=== PATIENT | male | born 1935 | race Hispanic/Latino ===

== ENCOUNTER 2017-09-16 09:56 | Emergency (ER) | payer MEDICARE, OTHER ==
[2017-09-16 10:11] VITALS: BP 137/74; PULSE 68; RESP 18; TEMP 98.4; O2SAT 98; BMI 29.0
[2017-09-16] MEDS ORDERED: TDAP Vaccine 0.5 mL Syr IM ONE (10:22)
--- NOTE | 2017-09-16 10:22 | ED PDOC ---
Arrival/HPI - General Time Seen by Provider: 09/16/17 09:58 Historian: Patient - History of Present Illness Narrative History of Present Illness (Text): 09/16/17 10:16 82 y/o male, pmh including htn/hyperlipidemia/bph, nkda, last tetanus doesn't remember, c/o fall and head laceration x 1 hour. Pt. stated that he was walking on the street, tripped over an uneven concrete curb, hit the head against the concrete, sustained laceration to the head and abrasion to the rt. hand, no rt. hand pain or discomfort, no neck pain, able to recall the whole event with no LOC, no rash, no palpitation, takes baby dose aspirin each day, no other medical or psychological complaints. Past Medical History - Provider Review Nursing Documentation Reviewed: Yes - Infectious Disease Hx of Infectious Diseases: None - Tetanus Immunization Tetanus Immunization: Unknown - Cardiac Hx Cardiac Disorders: Yes Hx Hypertension: Yes - Pulmonary Hx Respiratory Disorders: No - Neurological Hx Neurological Disorder: No - HEENT Hx HEENT Disorder: No - Renal Hx Renal Disorder: No - Endocrine/Metabolic Hx Endocrine Disorders: No - Hematological/Oncological Hx Blood Disorders: No - Integumentary Hx Dermatological Disorder: Yes Other/Comment: leg abscess (R) - Musculoskeletal/Rheumatological Hx Musculoskeletal Disorders: No - Gastrointestinal Hx Gastrointestinal Disorders: No - Genitourinary/Gynecological Hx Genitourinary Disorders: Yes Other/Comment: urinary retention - Psychiatric Hx Psychophysiologic Disorder: No Hx Substance Use: No - Surgical History Other/Comment: i&d 2 days ago of right posterior thigh abcess in er - Anesthesia Hx Anesthesia: Yes Hx Anesthesia Reactions: No Hx Malignant Hyperthermia: No - Suicidal Assessment Feels Threatened In Home Enviroment: No Family/Social History - Physician Review Nursing Documentation Reviewed: Yes Family/Social History: Unknown Family HX Smoking Status: Unknown If Ever Smoked Hx Alcohol Use: Yes Hx Substance Use: No Allergies/Home Meds Allergies/Adverse Reactions: Allergies No Known Allergies Allergy (Verified 10/12/15 11:37) Home Medications: Home Meds Medication Instructions Recorded Confirmed Lisinopril [Lisinopril] 10 mg PO DAILY 11/28/13 10/12/15 Simvastatin [Simvastatin] 40 mg PO HS 11/28/13 10/12/15 Aspirin [Ecotrin] 81 mg PO DAILY 10/12/15 10/12/15 Pantoprazole [Protonix] 40 mg PO DAILY PRN 10/12/15 10/12/15 Tamsulosin HCl [Flomax] 0.4 mg PO HS 10/12/15 10/12/15 amLODIPine [Norvasc] 5 mg PO DAILY 10/12/15 10/12/15 Review of Systems - Review of Systems Constitutional: absent: Fatigue, Fevers Eyes: absent: Vision Changes ENT: absent: Hearing Changes Respiratory: absent: SOB, Cough Cardiovascular: absent: Chest Pain Gastrointestinal: absent: Abdominal Pain, Diarrhea, Nausea, Vomiting Skin: Laceration, Other (+abrasion). absent: Rash, Pruritis, Skin Lesions, Abscess, Cellulitis Neurological: absent: Headache, Dizziness, Focal Weakness, Gait Changes, Speech Changes Physical Exam Vital Signs Reviewed: Yes Vital Signs Temp Pulse Resp BP Pulse Ox 09/16/17 10:10 98.4 F 68 18 137/74 98 Temperature: Afebrile Blood Pressure: Normal Pulse: Regular Respiratory Rate: Normal Appearance: Positive for: Well-Appearing, Non-Toxic, Comfortable Pain Distress: Mild Mental Status: Positive for: Alert and Oriented X 3 - Systems Exam Head: Present: Atraumatic, Laceration (frontal forehead extended to the skull L- shaped laceration superficial to intermediate approx. 8cm noted with no major artery laceration and no pulsation bleeding. ), Other (Facial: +ttp on the nasal bridge and abrasion noted. ) Pupils: Present: PERRL Extroacular Muscles: Present: EOMI Conjunctiva: Present: Normal Ears: Present: NORMAL TM, Normal Canal. No: Erythema Mouth: Present: Moist Mucous Membranes Pharnyx: No: ERYTHEMA, EXUDATE, TONSILS ENLARGED, Uvular Deviation Nose (External): Present: Abrasion, Contusion. No: Laceration, Lesions Nose (Internal): Present: Normal Inspection, No Active Bleeding. No: Rhinorrhea , Septal Hematoma, Epistaxis Neck: Present: Normal Range of Motion, Trachea Midline. No: Meningeal Signs, MIDLINE TENDERNESS, Paraspinal Tenderness, Lymphadenopathy Respiratory/Chest: Present: Clear to Auscultation, Good Air Exchange. No: Respiratory Distress, Accessory Muscle Use, Tender to Palpation Cardiovascular: Present: Regular Rate and Rhythm, Normal S1, S2. No: Murmurs Abdomen: Present: Normal Bowel Sounds. No: Tenderness, Distention, Peritoneal Signs, Rebound, Guarding Back: Present: Normal Inspection Upper Extremity: Present: Normal Inspection, Normal ROM, NORMAL PULSES, Neurovascularly Intact, Capillary Refill < 2s, Other (there is superficial abrasion approx. 1cm noted on the dorsum right hand 5th MCPJ region with no bony tenderness or swelling. ). No: Cyanosis, Edema, Tenderness, Swelling, Deformity Lower Extremity: Present: Normal Inspection, NORMAL PULSES, Normal ROM, Neurovascularly Intact, Capillary Refill < 2 s. No: Edema, Tenderness, Swelling , Deformity Neurological: Present: GCS=15, CN II-XII Intact, Speech Normal, Motor Func Grossly Intact, Gait Normal, Memory Normal Skin: Present: Warm, Dry, Normal Color. No: Rashes Psychiatric: Present: Alert, Oriented x 3, Normal Insight, Normal Concentration Medical Decision Making ED Course and Treatment: 09/16/17 10:26 -Pain med offer, pt. declined -Tdap ordered and agreed to take it -CT head and facial -I offer rt. hand xray and patient declined as he stated that he has no pain and able to have full range of movement on rt hand without difficulty. 09/16/17 11:58 -CT Head: No acute findings -CT facial: No acute findings. No evidence of fracture -Sensation intact, motor 5/5, laceration site on the frontal scalp, wound irrigated with normal saline 1000cc, clean with betadine, 1% lidocaine injected approx. 1cc, 4-0 nylon made 10 sutures, hemostasis obtained, bacitracin and gazue dressing, sensation intact, motor 5/5, total procedure time 15 minutes, no complication during the procedure. -Discharge home with bacitracin oinment, keep the dressing dry and clean for 2 days then clean with soap and water twice daily, sutures need to be removed by day 7, follow up with your own pmd within 2 days, return to the ER for any new or worsening signs or symptoms. - RAD Interpretation Radiology Orders: 09/16/17 10:22 HEAD W/O CONTRAST [CT] Stat MAXILLOFACIAL W/O CONTRAST [CT] Stat CT Head: FINDINGS: HEMORRHAGE: No intracranial hemorrhage. BRAIN: No mass effect or edema. No atrophy or chronic microvascular ischemic changes. VENTRICLES: Unremarkable. No hydrocephalus. CALVARIUM: There is a laceration in the frontal scalp. There is no associated fracture PARANASAL SINUSES: Unremarkable as visualized. No significant inflammatory changes. MASTOID AIR CELLS: Unremarkable as visualized. No inflammatory changes. OTHER FINDINGS: None. IMPRESSION: No acute findings CT maxillofacial: FINDINGS: NASAL BONES: Unremarkable. ORBITS: Unremarkable. PARANASAL SINUSES/ MASTOIDS: Clear. MAXILLA: Unremarkable. MANDIBLE/ TEMPOROMANDIBULAR JOINTS: Unremarkable. SKULL BASE: Unremarkable. TEMPORAL BONES: Middle ears and mastoid grossly unremarkable. 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 No evidence of fracture Operations Assistant: Radiologist - Medication Orders Current Medication Orders: Discontinued Medications Tetanus/Reduced Diphtheria/Acell Pertussis (Boostrix Vaccine Inj) 0.5 ml IM .ONCE ONE Stop: 09/16/17 10:23 - PA / MUSEUM SECURITY CHIEF / Resident Statement / has reviewed & agrees with the documentation as recorded. Disposition/Present on Arrival - Present on Arrival Any Indicators Present on Arrival: No History of DVT/PE: No History of Uncontrolled Diabetes: No Urinary Catheter: No History of Decub. Ulcer: No History Surgical Site Infection Following: None - Disposition Have Diagnosis and Disposition been Completed?: Yes Diagnosis: Accidental fall, Scalp laceration, Facial abrasion, Hand abrasion Disposition: HOME/ ROUTINE Disposition Time: 10:30 Patient Plan: Discharge Patient Problems: Current Active Problems Problem Status Onset Accidental fall Acute Scalp laceration Acute Facial abrasion Acute Hand abrasion Acute Condition: GOOD Additional Instructions: -Discharge home with bacitracin oinment, keep the dressing dry and clean for 2 days then clean with soap and water twice daily, sutures need to be removed by day 7, follow up with your own pmd within 2 days, return to the ER for any new or worsening signs or symptoms. Prescriptions: Bacitracin Ointment [Bacitracin] 1 appful TOP BID #15 g Referrals: [facility] at [facility] [place] [Outside] - Follow up with primary Forms: WORK NOTE
--- NOTE | 2017-09-16 10:56 | CT ---
PROCEDURE: CT HEAD WITHOUT CONTRAST. HISTORY: frontal forehad/skull laceration from fall, COMPARISON: None available. TECHNIQUE: Axial computed tomography images were obtained through the head/brain without intravenous contrast. Radiation dose: Total exam DLP = 887 mGy-cm. This CT exam was performed using one or more of the following dose reduction techniques: Automated exposure control, adjustment of the mA and/or kV according to patient size, and/or use of iterative reconstruction technique. FINDINGS: HEMORRHAGE: No intracranial hemorrhage. BRAIN: No mass effect or edema. No atrophy or chronic microvascular ischemic changes. VENTRICLES: Unremarkable. No hydrocephalus. CALVARIUM: There is a laceration in the frontal scalp. There is no associated fracture PARANASAL SINUSES: Unremarkable as visualized. No significant inflammatory changes. MASTOID AIR CELLS: Unremarkable as visualized. No inflammatory changes. OTHER FINDINGS: None. IMPRESSION: No acute findings
--- NOTE | 2017-09-16 11:14 | CT ---
PROCEDURE: CT MAXILLOFACIAL BONES WITHOUT CONTRAST HISTORY: nasal and facial injury from fall COMPARISON: None TECHNIQUE: Contiguous axial CT images of the maxillofacial bones were obtained. Coronal and sagittal reformats were generated. Radiation dose: Total exam DLP = 748 mGy-cm. This CT exam was performed using one or more of the following dose reduction techniques: Automated exposure control, adjustment of the mA and/or kV according to patient size, and/or use of iterative reconstruction technique. FINDINGS: NASAL BONES: Unremarkable. ORBITS: Unremarkable. PARANASAL SINUSES/ MASTOIDS: Clear. MAXILLA: Unremarkable. MANDIBLE/ TEMPOROMANDIBULAR JOINTS: Unremarkable. SKULL BASE: Unremarkable. TEMPORAL BONES: Middle ears and mastoid grossly unremarkable. 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 No evidence of fracture
== END 2017-09-16 12:24 | disposition home or self-care (01) ==
LOC: ED 09:56
DX: S01.01XA Laceration without foreign body of scalp, initial encounter (principal); S00.81XA Abrasion of other part of head, initial encounter; S60.511A Abrasion of right hand, initial encounter; W01.0XXA Fall on same level from slipping, tripping and stumbling without subsequent striking against object, initial encounter; Y93.01 Activity, walking, marching and hiking; Y92.410 Unspecified street and highway as the place of occurrence of the external cause; I10 Essential (primary) hypertension; E78.5 Hyperlipidemia, unspecified; N40.0 Benign prostatic hyperplasia without lower urinary tract symptoms; Z23 Encounter for immunization